=== PATIENT | male | born 1935 | race Caucasian/White ===

== ENCOUNTER 2017-01-19 14:31 | Emergency (ER) | payer MEDICARE, MEDICAID ==
[~2017-01-19] VITALS: Ht 127 cm; Wt 66.2 kg
[~2017-01-19 14:31] MED LIST: AMITRIPTYLINE25 MG PO; ASPIRIN CHILDRE81 M1 PO; CICLOPIROX 0.77% TP; CILOSTAZOL100 MG PO; DONEPEZIL 10MG10 MG PO; FLUOCINOLONE TP; HYDROCHLOROTH12.5 M1 PO; PREDNISONE 10MG10 MG PO; SELENIUM SULFI120 ML TP; SIMVASTATIN40 MG PO; VERAPAMIL SR 1180 MG PO
[2017-01-19 14:53] LABS: URINE BLOOD 3+ (NEG)
--- NOTE | 2017-01-19 14:53 | Emergency Room Report ---
History of Present Illness Time Seen by [id number] Presenting Problem in Triage Pt arrived:Walked Presenting Problem:RIGHT LOW BACK PAIN, BLOOD IN URINE BEGAN THIS AM Onset of symptoms date/time:/ or onset unknown for:MEDICAL HX UNKNOWN Treatment Prior to Arrival: [employer]AT MECH[employer]IC Provided by: Sepsis Risk Assessment: Temp: 98.4 B/P: 166/94 MAP: 118 Pulse: 50 Resp: 18 Recent fever? N Clinical Suspician of Infection? N Mental Status: 1 - Regular (Normal Baseline) Sepsis Risk:Low Sepsis Risk Have you (or family members/close friends) recently traveled outside the [place]? N If Yes, where/when: Have you had exposure to infectious disease within the past month? N TB? Other? Specify: 81 years old white male smoker Vitnam . This Morning, He developed sudden onset RIGHT CVA pain at 5 AM followed by painful hematuria x 5. Source patient, RN notes reviewed, family Exam Limitations no limitations ALLERGIES Coded Allergies: No Known Drug Allergies (NKDA) (01/19/17) Home Medications Active Scripts Prednisone (Prednisone 10MG) 10 MG PO BID 5 Days Prov: 11/23/11 Reported Medications Aspirin 81 MG PO DAILY DONEPEZIL HCL (Donepezil 10MG Tablet) 10 MG PO QHS VERAPAMIL HCL (Verapamil ER) 180 MG PO DAILY CILOSTAZOL (Cilostazol) 50 MG PO BID Hydrochlorothiazide (Hydrochlorothiazide 12.5MG) 12.5 MG PO DAILY AMITRIPTYLINE HCL (Amitriptyline HCl) 25 MG PO Simvastatin (Simvastatin 40MG Tab) 40 MG PO QHS Ciclopirox Olamine (Ciclopirox) 0.77 TP DAILY Selenium Sulfide (Selenium Sulfide 120 Ml) 120 ML TP DAILY Fluocinolone Acetonide 20 ML TP DAILY History Medical History General Angina: No UT: Yes Hypertension? Yes Hyperlipidemia? Yes COPD? Yes Asthma? Yes CVA? Yes Seizures? No Diabetes? No GB Disease: No MRSA? Yes TB? No Cancer? Yes Site: SKIN Immunization Hx DT/Tetanus UNKNOWN Surgical Hx Previous Surgery?Y SKIN CANCER REMOVED TENDONITIS BILAT HAND ANGIOGRAM Hernia Repair Social History Smoking Hx Smoker: Current Every Day Smoker Tobacco: Yes Type Cigarettes Packs/day 2 1/2 - 3 Packs Alcohol Alcohol: No Review of Systems All Other Systems Reviewed and Negative Constitutional no symptoms reported Eyes no symptoms reported ENT no symptoms reported. Respiratory no symptoms reported Cardiovascular no symptoms reported Gastrointestinal no symptoms reported Genitourinary see HPI, frequency, hematuria. Musculoskeletal no symptoms reported Skin no symptoms reported Psychiatric/Neurological no symptoms reported Physical Exam Vital Signs Vital Signs Date Time Temp Pulse Resp B/P Pulse O2 O2 Flow FiO2 Ox Delivery Rate 01/19 1617 54 18 157/82 94 01/19 1508 54 18 188/94 94 01/19 1502 18 01/19 1438 98.4 50 18 166/94 94 - WBC >12,000 or <4,000 or 10% bands? 2 or more SIRS Criteria Met? B/P:166/ MAP:118 Creatinine >2.0? UA output<0.5ml/kg/hr for 2 hrs? Platelet count >100,000? Lactate >2.0mmol/1? INR >1.2 or PTT > than 60 sec? Evidence of Organ Dysfunction? Provider documented clinical suspician of infection? N Sepsis Criteria Count: 0 Sepsis Risk: Low Sepsis Risk General Appearance normal appearance, WD/WN Eye Exam - bilateral eye normal exam, bilateral eye PERRL, bilateral eye EOMI Ear, Nose, Throat hearing grossly normal, normal ENT inspection Neck normal inspection, non-tender, supple, full range of motion Respiratory Status Yes: trachea midline, chest symmetrical, non tender chest. No: respiratory distress. Lung Sounds bilateral: normal breath sounds, lungs clear. Cardiovascular normal exam, regular rate/rhythm, no peripheral edema, no gallop, no JVD, no murmur, no rub, normal peripheral pulses Peripheral Pulses Pulses normal Yes Gastrointestinal normal bowel sounds, soft, no guarding, no rebound, tenderness, soft abdomen, with mild diffuse abdominal tenderness, no guarding no rigidity no rebound no cross tenderness. Positive bowel sounds Back CVA tenderness (R) Extremities non-tender, normal range of motion, normal inspection Rectal normal exam, normal rectal tone, nonpainful rectal exam small prostate, no nodule. Male Genitalia normal genitalia, normal prostate, no hernia, circumcised Nurse present during exam? Yes Neurologic alert, international trade manager II-XII nml as tested, normal exam, no motor/sensory deficits, oriented x 3 Mental status normal mood/affect Skin intact, normal color, warm/dry Medical Decision Making LABS/Meds/Orders Pt receiving controlled substance in ED? No Results/Orders Laboratory Tests 01/19/17 1500: Sodium 140, Potassium 3.8, Chloride 106, Carbon Dioxide 27, BUN 22 H, Creatinine 1.2, Estimated Creat Clear 46 L, Estimated GFR (MDRD) 58, Glucose 92 , Calcium 8.7, Total Bilirubin 0.5, AST 19, ALT 22, Alkaline Phosphatase 89, Total Protein 7.4, Albumin 3.5, Globulin 3.9 H, Albumin/Globulin Ratio 0.9 L, WBC 10.0, RBC 4.98, Hgb 14.7, Hct 47.1, MCV 94.6, RDW 15.2, Plt Count 219, Gran % 72.8, Gran # 7.3, Lymphocytes % 22.0, Monocytes % 5.2, Lymphocytes # 2.2, Monocytes # 0.5, PUBS MCHC 31.2 L, MCH 29.5 01/19/17 1435: Urine Color ORANGE, Urine Appearance SL CLOUDY, Urine pH 5.5, Ur Specific [place] 1.020, Urine Protein 2+ H, Urine Ketones TRACE H, Urine Blood 3+ H, Urine Nitrate POSITIVE H, Urine Bilirubin 1+ H, Urine Urobilinogen 1.0, Ur Leukocyte Esterase TRACE H, Urine RBC TNTC, Urine WBC NONE, Ur Squamous Epith Cells NONE, Urine Bacteria NONE, Urine Glucose TRACE H Current Medication Orders Sig/Paulette Start time Last Medication Dose Route Stop Time Status Admin Sodium Chloride 10 ML ONCE ONE 01/19 1700 UNV 01/19 IV 01/19 1701 1646 Iopamidol 100 ML ONCE ONE 01/19 1645 UNV 01/19 IV 01/19 1646 1646 Sodium Chloride 40 ML ONCE ONE 01/19 1645 UNV 01/19 IV 01/19 1646 1646 Sodium Chloride 10 ML PRN PRN 01/19 1515 AC IV 01/20 1508 Hydrocodone Bitart/ 1 TAB ONCE ONE 01/19 1500 DC 01/19 Acetaminophen PO 01/19 1501 1502 Hydrocodone Bitart/ 0 .STK-MED ONE 01/19 1456 DC Acetaminophen PO Orders Procedure Date/time Status DIET-NOTHING BY MOUTH 01/[address] ABD REQUEST 01/19 1623 Complete IV SALINE LOCK 01/[address] ABD/PELVIS REQ 01/19 1448 Complete URINALYSIS/COMPLETE 01/19 1448 Complete CBC WITH AUTO DIFF 01/19 1448 Complete CHEM 12 PROFILE 01/19 1448 Complete CULTURE, URINE 01/19 1435 Active Departure Departure Time of Disposition 1615 Disposition DC Home or Self Care(routine) Clinical Impression Primary Impression: Ureteric stone Secondary Impressions: Aortic aneurysm Condition STABLE Additional Instructions I discussed the Ct results with the patient and his family. I informed them about his aneurysm and need for follow up. He will drink plenty of ater and starin all urine start abx, flomax and pain medicine. will return if not better in 2 days, fever, chills , or vomiting. I discussed with the family to follow-up plan a kidney stone. a after obtaining a CT scan NEGATIVE for dissection I discussed with the family the need for follow up at the [facility] with vascular surgery. THE ARIEL, his daughter and his son-in-law verbalized understanding. Discharge Counseling Counseled pt/family regarding diagnosis, test results, medications/RX, home care, follow up needs Prescriptions Current Visit Scripts TAMSULOSIN HCL (Flomax) 0.4 MG PO QHS #5 CAP SULFAMETHOXAZOLE/TRIMETHOPRIM (Bactrim 400-80 MG Tablet) 1 TAB PO BID #10 TAB HYDROCODONE 5MG/APAP 325MG (Hydrocodon-Acetaminophen 5-325) 1 TAB PO Q8HP PRN pain #12 TAB ED Critical Care Critical Care No If Critical Care minutes are documented, the time involved in the performance of seperately reportable procedures was not counted toward critical care time documented. I directly delivered medical care to this critically ill and/or injured patient. Timely evaluation and treatment was necessary to address the significant organ system(s) dysfunction present in this patient. at 1712
[2017-01-19 15:03] LABS: URINE BILIRUBIN - DIPSTICK 1+ (NEG)
[2017-01-19 15:12] LABS: HEMOGLOBIN 14.7 g/dL (14.1-18.0)
[2017-01-19 15:13] LABS: LYMPH # 2.2 K/mm3 (0.7-4.5)
--- NOTE | 2017-01-19 15:49 | RADIOLOGY REPORT PS360 ---
CT ABD PELVIS W/O CONTRAST CLINICAL INDICATION: Right flank pain and hematuria RT CVA PAIN AND HEMATURIA SINCE 5 AM ORDERING PHYSICIAN: Tyler Rowell MD PATIENT AGE: 81 years COMPARISON: None TECHNIQUE: Axial images obtained with sagittal and coronal reformats. PROCEDURE: Oral Contrast: None IV Contrast: None . FINDINGS: There are coronary artery calcifications. There is fusiform dilatation of the aorta at the aortic hiatus at 5.7 x 5.2 cm. The aorta at the level of the renal arteries measures 3 x 2.7 cm. The infrarenal abdominal aorta then becomes fusiformly dilated again measuring up to 5.8 cm transverse and 5.7 cm AP. Just proximal to the aortic bifurcation the aorta aorta measures 4.1 cm transverse and 4 cm AP. The right common iliac artery measures up to 1.8 cm and the left common iliac measures up to 1.6 cm. There is no evidence of acute retroperitoneal hemorrhage. The liver, gallbladder, spleen and pancreas show no acute finding. There are multiple calcified splenic granulomas. Adrenal glands are somewhat prominent left more so than right There are multiple punctate right renal calculi measuring up to 5 mm in the upper pole. There is mild right hydronephrosis and hydroureter secondary to a 5 mm stone at the right ureterovesical junction. Urinary bladder is decompressed with mild nonspecific thickening of the urinary bladder wall. Punctate left renal calculi are present measuring up to 3 mm in the upper pole without hydronephrosis There is diffuse colonic diverticulosis. No evidence of diverticulitis.. No evidence of appendicitis. No abnormal fluid collections. No acute bony anomalies. IMPRESSION: 1. 5 mm right ureterovesical junction stone with mild right hydroureteronephrosis. 2. Bilateral nephrolithiasis. 3 fusiform aneurysm of the abdominal aorta including the suprarenal and infrarenal abdominal aorta measuring up to 5.7 cm. No evidence of acute retroperitoneal hemorrhage
[2017-01-19] MEDS ORDERED: BACTRIM 400 MG-1 TAB PO (16:18)
[2017-01-19] MEDS ORDERED: FLOMAX0.4 MG PO (16:18)
[2017-01-19] MEDS ORDERED: HYDROCODONE-APA1 TA1 PO (16:19)
--- NOTE | 2017-01-19 17:09 | RADIOLOGY REPORT PS360 ---
CT ABD PELVIS W/ CONTRAST CLINICAL INDICATION: Abdominal aortic aneurysm AAA ORDERING PHYSICIAN: Tyler Rowell MD PATIENT AGE: 81 years COMPARISON: Unenhanced exam from the same day TECHNIQUE: Axial images obtained with sagittal and coronal reformats. PROCEDURE: Oral Contrast: None IV Contrast: 100 mL [id number]. FINDINGS: Fusiform suprarenal and infrarenal abdominal aortic aneurysm once again noted measuring up to 5.6 x 5.1 cm transverse and AP in the suprarenal portion, 2.7 x 2.9 cm at the level of the renal arteries, and 6 x 6 cm in the infrarenal area, the aorta measures 4.2 x 3.4 cm at the aortic bifurcation. The right common iliac artery measured up to 2 cm and the left common iliac artery measures up to 1.5 cm. Renal arteries are patent. No evidence of aortic dissection. Celiac artery and superior mesenteric artery are also patent. The ROSA is patent as well. No evidence of acute retroperitoneal hemorrhage. There is diffuse diverticulosis of the sigmoid colon without evidence of diverticulitis. A 5 mm right ureterovesical junction stone is present. IMPRESSION: Fusiform abdominal aortic aneurysm as described above with both a supra renal (5.6 x 5.1 cm) and infrarenal component (6 x 6 cm) as described above 5 mm right ureterovesical junction stone with obstructive uropathy
[2017-01-19 18:04] VITALS: BP 157/82
== END 2017-01-19 18:06 | disposition home or self-care (01) ==
LOC: ER 14:31
PROVIDERS: Emergency Medicine
DX: N20.1 Calculus of ureter (principal); I71.4 Abdominal aortic aneurysm, without rupture; Z91.040 Latex allergy status; I10 Essential (primary) hypertension; J44.9 Chronic obstructive pulmonary disease, unspecified; F17.210 Nicotine dependence, cigarettes, uncomplicated